=== PATIENT | female | born 1980 | race African-American/Black ===

== ENCOUNTER 2017-04-26 23:24 | Inpatient (IN) | payer OTHER ==
[2017-04-26] MEDS ORDERED: SODIUM CHLORIDE 0.9% 1000ML 1,000 ML IVS ONE (23:50)
[2017-04-26] MEDS ORDERED: ONDANSETRON INJ 4 MG/2 ML VIAL IV ONE (23:50)
--- NOTE | 2017-04-26 23:53 | ED.PDOC ---
History of Present Illness - General Chief Complaint: Abdominal Pain Stated Complaint: generalized weakness, N/V/D, LLQ pain c cramps Time Seen by Provider: 04/26/17 23:38 Information Source: patient, RN notes reviewed, Vital Signs reviewed Exam Limitations: no limitations - History of Present Illness Initial Comments: Patient comes in with c/o generalized weakness, N/V/D and LLQ abd pain that started this morning. She works at [employer] and has been around a lot of ill individuals. She also has a history of frequent anemia due to gastric bypass 10 years ago. Her last transfusion was ~3 weeks ago. Her last Hgb was 11.5. Abdominal Pain Onset Location: LLQ Pain Radiation: no radiation Quality: mild, cramping, dull Timing/Duration: 24 hours Improving Factors: nothing Worsening Factors: nothing Associated Symptoms: diarrhea, fatigue, nausea/vomiting Review of Systems - Review of Systems Constitutional: States: malaise, weakness. Denies: chills, fever EENTM: States: no symptoms reported Respiratory: States: no symptoms reported Cardiology: States: no symptoms reported Gastrointestinal/Abdominal: States: see HPI, abdominal pain, diarrhea, nausea, vomiting Musculoskeletal: States: no symptoms reported Skin: States: no symptoms reported Neurological: States: no symptoms reported Hematologic/Lymphatic: States: anemia All other Systems: No Change from Baseline Past Medical History (General) - Patient Medical History Hx Seizures: No Hx Stroke: No Hx Dementia: No Hx Asthma: No Hx of COPD: No Hx Cardiac Disorders: No Hx Congestive Heart Failure: No Hx Pacemaker: No Hx Hypertension: No Hx Thyroid Disease: No Hx Diabetes: No Hx Gastroesophageal Reflux: No Hx Renal Disease: No Hx Cancer: No Hx of HIV: No Hx Hepatitis C: No Hx MRSA: No Surgical History: cholecystectomy, gastric bypass, Hysterectomy, other - Vaccination History Hx Tetanus, Diphtheria Vaccination: No Hx Influenza Vaccination: No Hx Pneumococcal Vaccination: No Immunizations Up to Date: No - Social History Hx Tobacco Use: No Hx Chewing Tobacco Use: No Hx Alcohol Use: Yes - social Hx Substance Use: No Hx Substance Use Treatment: No Hx Depression: No Feels Threatened In Home Enviroment: No Feels Threatened In a Relationship: No Hx Physical Abuse: No Hx Emotional Abuse: No Hx Suspected Abuse: No Family Medical History - Family History Father Cause of : heart attack Hx Family Hypertension: Yes Hx Cardiac Disease: Yes Physical Exam - Physical Exam General Appearance: Alert, No apparent distress, Ill Appearing, Well Developed, Well Groomed, Well Hydrated, Well Nourished Neck: non-tender, full range of motion, supple, normal inspection Respiratory: lungs clear, normal breath sounds, no respiratory distress, no accessory muscle use Cardiovascular/Chest: regular rate, rhythm, no gallop, no murmur Gastrointestinal/Abdominal: normal bowel sounds, non tender, soft, no organomegaly, no pulsatile mass Neurologic: alert, normal mood/affect, oriented x 3 Skin Exam: normal color, warm/dry Comments: Vital Signs 04/26/17 23:30 Temperature 97.2 F L Pulse Rate [ 115 H monitor] Respiratory 16 Rate Blood Pressure 141/76 [Left Arm] O2 Sat by Pulse 100 Oximetry Progress - Progress Progress: 04/27/17 01:21 Labs show Hgb of 7.9 which is a 3.5 point drop from her last check. Concern is that when she gets rehydrated from her dehydration that it will go lower. Discussed with Hospitalist. Will admit for blood transfusion and further management of her gastroenteritis. - Results/Orders Results/Orders: Laboratory Tests 04/26/17 04/26/17 12:25 12:25 WBC 6.0 RBC 2.63 L Hgb 7.9 L* Hct 23.7 L MCV 90.1 MCH 30.0 MCHC 33.2 RDW 15.0 H Plt Count 193 MPV 8.3 Absolute Neuts (auto) 4.50 Absolute Lymphs (auto) 0.90 L Absolute Monos (auto) 0.50 Absolute Eos (auto) 0.00 Absolute Basos (auto) 0.00 Neutrophils % 75.4 Lymphocytes % 15.0 L Monocytes % 8.8 Eosinophils % 0.4 L Basophils % 0.4 Sodium 135 Potassium 4.1 Chloride 101 Carbon Dioxide 26 Anion Gap 12.1 BUN 24 H Creatinine 0.73 BUN/Creatinine Ratio 32.9 H Random Glucose 118 H Serum Osmolality 275.2 Calcium 8.8 Total Bilirubin 0.5 AST 25 ALT 25 Alkaline Phosphatase 39 L Serum Total Protein 6.3 L Albumin 4.1 Globulin 2.2 L Albumin/Globulin Ratio 1.9 Departure - Departure Clinical Impression: Gastroenteritis, Anemia due to blood loss, chronic Time of Disposition: 01:24 Disposition: Discharge to Home or Self Care Condition: Fair Departure Forms: ED Discharge - Pt. Copy, Patient Portal Self Enrollment Instructions: DI for Abdominal Pain-Adult Home Medications: Ambulatory Orders Bariatric Advantage 1 ea PO DAILY 04/26/17 Cyanocobalamin [B12] 1,000 mcg PO DAILY 04/26/17 Gabapentin [Neurontin] 300 mg PO TID PRN 04/26/17 Hydrocodone-Acetaminophen [Hydrocodone Bitartrate/AC] 20 ml PO Q6HR PRN Multiple Vitamins W/ Minerals [Multivitamin Adult] 1 chw PO DAILY 04/26/17 Decision To Admit - Decistion To Admit Decision to Admit Reason: Admit from ER Decision to Admit Date: 04/27/17 Decision to Admit Time: 01:23
--- NOTE | 2017-04-27 01:40 | HP ---
SUPERVISING PHYSICIAN: Kemal Atkins M.D. CHIEF COMPLAINT: Abdominal pain. HISTORY OF PRESENT ILLNESS: Ms. Benites is a 37 year-old female that presented to the Emergency Department complaining of generalized weakness, nausea, vomiting, diarrhea and some left lower quadrant abdominal pain that she describes as cramping. It started the morning of admission. 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 She does have a significant history of having gastric bypass 10 years previously and chronic anemia with B12 deficiency and has required multiple transfusions in the past with her last transfusion being within the last 3 weeks. She notes that her last hemoglobin was 11.5. Laboratory studies in the Emergency Department showed that she was significantly anemic with hemoglobin 7.9, hematocrit 23.7 with platelet count 193,000. Differential is within normal limits as well as white count was normal. Chemistries showed a slightly elevated BUN of 24 with normal electrolytes and normal liver function. Urinalysis also was within normal limits. She was given saline in the Emergency Department and given that she has significant anemia, and was significantly dehydrated, Dr. Li, E. R. physician, requested the patient be transitioned to Observation at least to further manage her fluid status and in anticipation of transfusion of 2 units of packed red blood cells with concerns that she may be much more anemic once she receives adequate fluid resuscitation. The patient was admitted in stable condition to the Medical/ Surgical floor. PAST MEDICAL HISTORY: 1. Chronic anemia secondary to previous gastric bypass. 2. Chronic B12 deficiency. 3. Rheumatoid arthritis. 4. History of peptic ulcer disease. 5. Chronic pain syndrome. 6. Elevated cholesterol. PAST SURGICAL HISTORY: 1. Laparoscopic surgery for endometriosis times 2. 2. Two sections. 3. Breast reduction. 4. Gastric bypass 10 years previously. 5. Cholecystectomy. 6. Partial hysterectomy. HOME MEDICATIONS: 1. Multiple vitamins with minerals once daily. 2. Liquid hydrocodone with Acetaminophen 20 mL as needed every 6 hours for pain. 3. B12 1,000 mcg daily. 4. Gabapentin 300 mg 3 times daily. 5. Bariatric Advantage 1 daily. ALLERGIES: ALBUTEROL, MORPHINE AND NSAIDs. FAMILY HISTORY: Father is from complications from pancreatic cancer as well as diabetes and cardiovascular disease. Mother is currently alive but has problems with hypertension. 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 Currently works in [employer] but lives in [place], [place]. She is . She has never smoked. She only drinks wine on occasions rarely. Denies any illicit drug use. MEDICAL PROVIDERS: Vending Technician, Dr. Vega Primary care physician, Dr. Chuck Jung Pain management, [facility], [place], [place] REVIEW OF SYSTEMS: CONSTITUTIONAL: Positive for weakness and general malaise but denies any chills or fever. HEENT: Denies any symptoms. CARDIOVASCULAR: Denies any chest pains, palpitations, syncopal episodes. RESPIRATORY: Denies any shortness of breath. GASTROINTESTINAL: As noted in the History of Present Illness, abdominal pain with some nausea, vomiting and diarrhea. NEUROLOGIC: Denies any syncopal episodes, headaches, dizziness or other neurological symptoms. PHYSICAL EXAMINATION: VITAL SIGNS: On admission, initially showed temperature 97.2 with heart rate 115, blood pressure 141/76, respirations 16, satting 100% on room air. On admission to the Medical/Surgical floor, temperature 97.5, pulse 97, blood pressure 114/77, respirations 16, satting 99% on room air with weight 73.0 kg. GENERAL: The patient is alert. Appears to be in no distress. Does appear ill- appearing but is well-nourished and well-hydrated. HEENT: Tympanic membranes are clear bilaterally. Oropharynx is pink. Mucosal membranes were dry with no lesions noted. NECK: Supple with full range of motion, non-tender with no jugular venous distention noted. CHEST: Clear to auscultation bilaterally without any rhonchi, wheezing or rales. CARDIOVASCULAR: Regular rate and rhythm without appreciable murmurs, gallops, or rubs. ABDOMEN: Soft. Some tenderness noted on deep palpation to the left lower quadrant. Bowel sounds are present and normal. NEUROLOGIC: She is alert and oriented times three with no neurologic or sensory motor deficits noted. LABORATORY: CBC showed white count 6, hemoglobin 7.9, hematocrit 23.7, platelet count 193,000. Differential showed to be with elevated lymphocytes. Chemistries showed normal electrolytes with potassium 4.1 with BUN 24, creatinine 0.73. Liver functions showed to be within normal limits. Glucose 118. Albumin 4.1. Urinalysis showed just a trace of blood on dipstick, otherwise within normal limits. MICROBIOLOGY: Stool culture: Clostridium Difficile colitis pending, leukoferrin pending and occult bloods pending on stool. Blood bank cross match for 4 units of packed red blood cells is pending at time of admission. RADIOLOGY: She had an abdominal pelvic CT on admission to the Medical/Surgical floor and per radiology interpretation there was note of postsurgical changes from gastric bypass with prominent vessels in the mesentery in the right mid upper quadrant of the abdomen seen which could represent collateral circulation from unknown etiology, possibly related to previous surgery. There was also mention of well circumscribed 2.2 x 1.8 cm cyst in the right cecum possibly representing a mesenteric cyst. The appendix was not identified and there was no CT evidence of bowel obstruction or inflammatory changes. Please see that report for full details. ASSESSMENT: 1. Acute on chronic anemia requiring transfusion of packed red blood cells in a patient with a past history of gastric bypass and having required multiple transfusions in the past with the most recent being within the last 3 weeks. 2. Gastroenteritis likely viral with the patient having an elevated lymphocyte count but having been in a healthcare facility exposed to previously ill patients with similar symptoms with some mild abdominal pain, nausea, vomiting and diarrhea. 3. Nausea, vomiting and diarrhea secondary to number 2 with the patient noting that she has some chronic diarrhea secondary to her previous gastric bypass. 4. Rheumatoid arthritis. 5. History of previous peptic ulcer disease. 6. B12 deficiency. 7. Chronic pain syndrome followed by a pain clinic in [place], [place]. 8. History of being negative for sickle cell trait per the patient's review of medical records provided by the patient. 9. Moderate dehydration secondary to ongoing nausea and vomiting likely from acute gastroenteritis likely viral versus remote possibility of being bacterial in origin with stool studies pending. PLAN: The patient will be admitted to the Medical/Surgical floor for transfusion of initially 2 units of packed red blood cells and fluid management with IV fluids to assist in rehydration given the nausea, vomiting and diarrhea. Will start the patient on Levaquin and Flagyl given her symptomology of the nausea, vomiting, diarrhea and some left lower quadrant pain, and possible exposure to healthcare-related gastroenteritis awaiting stool studies. She will be made NPO initially and then advance diet as she shows clinical improvement. Will anticipate hopefully discharging tomorrow once her H&H has shown to be stable and improved, and she is able to tolerate her oral intake. She does have arrangements to see a personal insurance advisor which she is not sure of the doctor' name, but she has also got an appointment to see a senior mechanical project engineer as noted above once discharged as she is due a colonoscopy in the near future. Will anticipate length of stay to be 2 to 3 days. Until discharge, will continue to monitor the patient closely and treat appropriately. Will plan to reevaluate in the morning with repeat CBC and again a BMP. #[id number] [facility] CENTERMurtaza
[2017-04-27] MEDS ORDERED: SODIUM CHLORIDE 0.9% 1000ML 1,000 ML IVS ONE (02:30)
[2017-04-27] MEDS ORDERED: SODIUM CHLORIDE 0.9% 1000ML 1,000 ML ONE (02:36)
[2017-04-27] MEDS ORDERED: ONDANSETRON INJ 4 MG/2 ML VIAL ONE (03:46)
[2017-04-27] MEDS ORDERED: levoFLOXacin 500MG IV 100 ML IVPB ONE (03:46)
[2017-04-27] MEDS: levoFLOXacin 500MG IV 500 MG in PREMIX BAG 1 BAG IVPB SCH (03:49)
[2017-04-27] MEDS: ONDANSETRON INJ 4 MG/2 ML VIAL IV PRN ×3 (03:59→13:59)
[2017-04-27] MEDS ORDERED: metroNIDAZOLE IV PREMIX 500MG 500 MG in PREMIX BAG 1 BAG IVPB SCH (04:00)
[2017-04-27] MEDS: HYDROmorphone HCL INJ 2 MG/ML VIAL IV PRN ×5 (04:37→23:53)
[2017-04-27] MEDS ORDERED: metroNIDAZOLE IV PREMIX 500MG 100 ML IVPB ONE ×3 (05:09→20:22)
[2017-04-27] MEDS: metroNIDAZOLE IV PREMIX 500MG 500 MG in PREMIX BAG 1 BAG IVPB SCH ×3 (05:14→21:09)
[2017-04-27] MEDS: KCL 20MEQ/0.45% NS 1,000 ML IVS PRN (06:28)
[2017-04-27] MEDS ORDERED: IV SET AND CAP CHANGE INJ INJ SCH (07:30)
[2017-04-27] MEDS ORDERED: ACETAMINOPHEN 325 MG TAB PO PRN (07:30)
--- NOTE | 2017-04-27 07:58 | CT ---
EXAM DESCRIPTION: Abdomen/Pelvis w/Contrast CLINICAL HISTORY: Gastroenteritis COMPARISON: None. TECHNIQUE: Noncontrast transaxial CT images of the abdomen and pelvis are obtained. This exam was performed according to our departmental dose-optimization program, which includes automated exposure control, adjustment of the mA and/or kV according to patient size and/or use of iterative reconstruction technique . FINDINGS: Visualized lung bases are unremarkable. Given the limitations of a noncontrast exam the liver, spleen, pancreas, and adrenal glands are unremarkable. Surgical clips from cholecystectomy are seen. Abdominal vasculature is unremarkable. No significant nephrolithiasis. No ureteral obstruction. Urinary bladder is contracted and not well evaluated. Uterus is not identified and could be surgically absent. There is a 2.7 cm fluid attenuation follicle of the right ovary. The left ovary is unremarkable. The appendix is not identified. There is a 2.2 x 1.8 cm fluid attenuation cyst to the right of the cecum. There are postsurgical changes identified from gastric bypass surgery. No bowel obstruction is seen. Colon is unremarkable. No significant diverticular disease is identified. There are enlarged prominent vessels in the mesentery of the right mid to upper quadrant of the abdomen. Mild swirling of the vessels in the mesenteric root are seen possibly related to previous surgery. There are nonspecific mostly less than 1 cm lymph nodes in the mesenteric fat of the mid abdomen. No significant retroperitoneal lymphadenopathy seen. Osseous structures show no aggressive bony lesions. IMPRESSION: Postsurgical changes from gastric bypass identified. Prominent vessels in the mesentery of the right mid to upper quadrant of the abdomen are seen. This could represent collateral circulation from unknown etiology possibly related to previous surgery. Well-circumscribed 2.2 x 1.8 cm cyst to the right of the cecum. This could represent mesenteric cyst. The appendix is not definitely identified. Correlate with patient's surgical history. Consider further evaluation with CT of the abdomen and pelvis with IV and oral contrast for better evaluation. No CT evidence of bowel obstruction or inflammatory changes. Other findings as described in body of the report. Electronically signed by: Tal Lau MD 04/27/2017 7:56 AM CDT
[2017-04-27] MEDS ORDERED: ACETAMINOPHEN 325 MG TAB PO ONE (13:22)
[2017-04-27] MEDS ORDERED: diphenhydrAMINE HCL 50 MG/ML VIAL IV ONE ×2 (13:22→16:25)
[2017-04-27] MEDS ORDERED: methylPREDNISolone SODIUM SUC 40 MG/ML VIAL IV ONE (13:22)
[2017-04-27] MEDS ORDERED: SODIUM CHLORIDE 0.9% 500ML 500 ML IVS SCH (13:30)
[2017-04-27] MEDS ORDERED: GABAPENTIN 300 MG CAP PO PRN (16:46)
[2017-04-27] MEDS: diphenhydrAMINE HCL 50 MG/ML VIAL IV PRN ×2 (20:08→23:53)
[2017-04-27] MEDS: SODIUM CHLORIDE 0.9% (FLUSH) 10 ML SYG IV PRN ×2 (20:08→23:52)
[2017-04-28] MEDS ORDERED: methylPREDNISolone SODIUM SUC 40 MG/ML VIAL IV ONE (01:27)
[2017-04-28] MEDS: SODIUM CHLORIDE 0.9% (FLUSH) 10 ML SYG IV PRN ×3 (01:31→04:57)
[2017-04-28] MEDS ORDERED: levoFLOXacin 500MG IV 100 ML IVPB ONE (03:01)
[2017-04-28] MEDS ORDERED: metroNIDAZOLE IV PREMIX 500MG 100 ML IVPB ONE (03:02)
[2017-04-28] MEDS: KCL 20MEQ/0.45% NS 1,000 ML IVS PRN (03:45)
[2017-04-28] MEDS: levoFLOXacin 500MG IV 500 MG in PREMIX BAG 1 BAG IVPB SCH (03:45)
[2017-04-28] MEDS: diphenhydrAMINE HCL 50 MG/ML VIAL IV PRN (03:56)
[2017-04-28 04:16] VITALS: O2SAT 100
[2017-04-28] MEDS: HYDROmorphone HCL INJ 2 MG/ML VIAL IV PRN (04:57)
[2017-04-28] MEDS: metroNIDAZOLE IV PREMIX 500MG 500 MG in PREMIX BAG 1 BAG IVPB SCH (05:13)
[2017-04-28] MEDS ORDERED: CYANOCOBALAMIN 1,000 MCG TAB ONE (07:56)
[2017-04-28] MEDS ORDERED: MAGNESIUM HYDROXIDE 30 ML UD ONE (07:56)
[2017-04-28] MEDS ORDERED: diphenhydrAMINE HCL 50 MG/ML VIAL IV PRN (08:00)
[2017-04-28] MEDS ORDERED: MAGNESIUM HYDROXIDE 30 ML UD PO ONE (08:07)
[2017-04-28] MEDS ORDERED: BARIATRIC ADVANTAGE PO SCH (09:00)
[2017-04-28] MEDS ORDERED: CYANOCOBALAMIN 1,000 MCG TAB PO SCH (09:00)
[2017-04-28] MEDS ORDERED: PANTOPRAZOLE SOD SUSP 40 MG PCKT PO ONE (09:03)
[2017-04-28] MEDS ORDERED: SUCRALFATE 1 GM/10 ML 1 GM UD PO SCH (09:05)
[2017-04-28] MEDS ORDERED: HYDROcodone/APAP 5MG/217MG LIQ 10 ML UD PO PRN (09:13)
[2017-04-28] MEDS ORDERED: FLUCONAZOLE 150 MG TAB PO ONE (10:54)
[2017-04-28] MEDS ORDERED: FLUCONAZOLE 150 MG TAB ONE (10:57)
[2017-04-28 11:13] VITALS: BP 118/82; TEMP 97.1
--- NOTE | 2017-05-03 18:22 | DS ---
SUPERVISING PHYSICIAN: Kemal Atkins M.D. DISCHARGE DIAGNOSIS: 1. Acute on chronic anemia requiring transfusion of 2 units of packed red blood cells in a patient with a history of past gastric bypass and having required multiple transfusions in the past with the most recent being within the last 3 weeks showing to be stable at discharge. 2. Gastroenteritis likely viral with the patient having an elevated lymphocytic count having been in a healthcare facility exposed to previously ill patients with similar symptoms with some mild abdominal pain, nausea, vomiting and diarrhea showing improvement prior to discharge. 3. Nausea, vomiting and diarrhea secondary to number 2 with the patient noting that she has some chronic diarrhea secondary to her previous gastric bypass. 4. Rheumatoid arthritis. 5. History of previous peptic ulcer disease. 6. B12 deficiency. 7. Chronic pain syndrome followed by a pain clinic in [place], [place]. 8. History of being negative for sickle cell trait per the patient's review of medical records provided by the patient. 9. Moderate dehydration secondary to ongoing nausea and vomiting likely from acute gastroenteritis likely viral versus remote possibility of being bacterial in origin with stool studies not collected as the patient had no other episodes of diarrhea while hospitalized. HISTORY OF PRESENT ILLNESS: Ms. Benites is a 37 year-old female that presented to the Emergency Department complaining of generalized weakness, nausea, vomiting, diarrhea and some left lower quadrant abdominal pain that she describes as cramping. It started the morning of admission. 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 She does have a significant history of having gastric bypass 10 years previously and chronic anemia with B12 deficiency as well as requiring multiple transfusions in the past with her last transfusion being within the last 3 weeks prior to this admission. She notes that her last hemoglobin was 11.5. Today laboratory studies in the Emergency Department showed that she was significantly anemic with hemoglobin 7.9, hematocrit 23.7 with platelet count 193,000. Differential is within normal limits as well as white count. Chemistries showed a slightly elevated BUN of 24 with normal electrolytes and normal liver function. Urinalysis also was within normal limits. She was given saline in the Emergency Department and given that she has significant anemia, and was significantly dehydrated, Dr. Li, E. R. physician, requested the patient be transitioned to Observation at least for further management of her fluid status and in anticipation of transfusion of 2 units of packed red blood cells with concerns that she may be much more anemic once she receives adequate fluid resuscitation. The patient was admitted in stable condition to the Medical/Surgical floor. LABORATORY STUDIES: Admission white count was 6, at discharge was 10.3. Initial hemoglobin and hematocrit was 7.9 and 23.7, after transfusion of 2 units of packed red blood cells at discharge her hemoglobin 10.4, hematocrit 30.9, platelet count 180,000. Differential did show a left shift prior to discharge. Chemistries showed normal electrolytes. Initially her BUN was slightly elevated at 24 with creatinine 0.73, at discharge BUN was 7, creatinine 0.56, glucose 141 at discharge. Liver functions all showed to be within normal limits. Urinalysis on admission showed just a trace lysed blood on dipstick, otherwise everything else was within normal limits. Abdomen and pelvic CT ordered with contrast, however the patient was unable to have adequate IV access with contrast limiting the exam, and she only got a small bolus of contrast per radiology. Per radiology interpretation was noted prominent vessels in the mesentery in the right upper quadrant of the abdomen is seen which could represent collateral circulation from a related surgery. Well circumcised 2.2 x 1.8 cyst to the right of the cecum which could represent a mesenteric cyst. The appendix was not definitely identified. There is no CT evidence of bowel obstruction or inflammatory changes. Please refer to that final report for full details. HOSPITAL COURSE: Ms. Benites was admitted from the Emergency Department as noted in the History of Present Illness for severe anemia and dehydration. She was given IV fluids and transfused 2 units of packed red blood cells which she tolerated without any complications. She was given Solu-Medrol. She supposedly had a history of past transfusion reaction. There were no identified antibodies in her initial workup. She did have a slight rash that resolved shortly after transfusion began. She remained stable and showed improved H&H prior to discharge. In regards to the abdominal pain, she continued to have a little nausea initially on admission but was able to advance her diet to a regular diet with no recurrence of nausea. She had no recurrence of diarrhea and was noted that her abdominal pain had improved. It was noted that she was requiring initially Dilaudid for pain control on admission. The patient was started on Levaquin and Flagyl with concerns for possible bacterial gastroenteritis but showed good clinical resolution and it was felt that it was most likely viral. She would benefit from a course of additional treatment with both Levaquin and Flagyl on discharge. PLAN: Ms. Benites was discharged on 04/28/17. She was instructed to have close clinical followup with her cage shift manager and primary care physician. She was told to call both places she is to have a followup appointment with Dr. Russ in [place]. She will need a colonoscopy in the near future to further investigate a possible gastrointestinal loss. She was told to resume her home medications and start new medications as directed. She was told to return to the hospital or call 911 should she have any return of her symptoms. DISCHARGE MEDICATIONS: 1. Diflucan 150 mg once. 2. Levaquin 500 mg, #3. 3. Metronidazole 500 mg 3 times a day, #9. 4. Carafate 1 gram oral 4 times daily, 500 mL, 1 gram per 10 mL. Diet at discharge was usual diet as tolerated. Activity was increase as tolerated. Condition at discharge was stable and improved. [facility][id number] [facility]
== END 2017-04-28 11:26 | disposition home or self-care (01) | DRG 812 ==
LOC: ER 23:24 → OBSVTOIN 04-27 01:39 → MS 04-27 01:39
PROVIDERS: ADMIT Nurse Practitioner Family; ATTEND Nurse Practitioner Family
PROC: 30233N1 Transfusion of Nonautologous Red Blood Cells into Peripheral Vein, Percutaneous Approach (ICD-10-PCS; principal; 2017-04-27)
PROC: BW21YZZ Computerized Tomography (CT Scan) of Abdomen and Pelvis using Other Contrast (ICD-10-PCS; 2017-04-27)
DX: D64.9 Anemia, unspecified (principal); A04.9 Bacterial intestinal infection, unspecified; A08.4 Viral intestinal infection, unspecified; E86.0 Dehydration; M06.9 Rheumatoid arthritis, unspecified; E53.8 Deficiency of other specified B group vitamins; E78.00 Pure hypercholesterolemia, unspecified; G89.4 Chronic pain syndrome; Z87.11 Personal history of peptic ulcer disease; Z98.84 Bariatric surgery status; Z79.891 Long term (current) use of opiate analgesic; Z79.899 Other long term (current) drug therapy; Z88.5 Allergy status to narcotic agent; Z88.6 Allergy status to analgesic agent; Z88.8 Allergy status to other drugs, medicaments and biological substances

== ENCOUNTER 2017-06-13 08:25 | Emergency (ER) | payer OTHER ==
--- NOTE | 2017-06-13 08:52 | ED.PDOC ---
History of Present Illness - General Chief Complaint: General Stated Complaint: SOB with exertion Time Seen by Provider: 06/13/17 08:43 Source: patient, RN notes reviewed, Vital Signs reviewed Exam Limitations: no limitations - History of Present Illness Initial Comments: Patient with history of chronic anemia comes in with her usual anemia symptoms. She is having a lot of fatigue. Worse when she is up moving around. Having to stop frequently and rest. She last had her hemoglobin checked ~4 weeks ago and it was 10.7 at that time. Timing/Duration: 24 hours, getting worse Severity: moderate Improving Factors: rest Worsening Factors: movement Associated Symptoms: shortness of breath - with activity Allergies/Adverse Reactions: Allergies Albuterol Allergy (Verified 04/26/17 23:47) Morphine Allergy (Verified 04/26/17 23:47) NSAIDs Allergy (Verified 04/26/17 23:47) IV Iron Allergy (Uncoded 06/13/17 08:42) Home Medications: Ambulatory Orders Bariatric Advantage 1 ea PO DAILY 04/26/17 Cyanocobalamin [B12] 1,000 mcg PO DAILY 04/26/17 Hydrocodone-Acetaminophen [Hydrocodone Bitartrate/AC 7.5-325 mg/15Ml] 20 ml PO Q6HR PRN 04/26/17 Multiple Vitamins W/ Minerals [Multivitamin Adult] 1 chw PO DAILY 04/26/17 Sucralfate Suspension [Carafate Suspension] 1 gm PO QID #500 ml 04/28/17 Review of Systems - Review of Systems Constitutional: States: malaise. Denies: chills, fever EENTM: States: no symptoms reported Respiratory: States: short of breath. Denies: cough, stridor, wheezing Cardiology: States: no symptoms reported. Denies: chest pain, palpitations, syncope Gastrointestinal/Abdominal: States: no symptoms reported. Denies: nausea, vomiting Musculoskeletal: States: no symptoms reported Skin: States: no symptoms reported Neurological: States: no symptoms reported Hematologic/Lymphatic: States: anemia All other Systems: No Change from Baseline Past Medical History (General) - Patient Medical History Hx Seizures: No Hx Stroke: No Hx Dementia: No Hx Asthma: No Hx of COPD: No Hx Cardiac Disorders: No Hx Congestive Heart Failure: No Hx Pacemaker: No Hx Hypertension: No Hx Thyroid Disease: No Hx Diabetes: No Hx Gastroesophageal Reflux: No Hx Renal Disease: No Hx Cancer: No Hx of HIV: No Hx Hepatitis C: No Hx MRSA: No Surgical History: cholecystectomy, Hysterectomy - Vaccination History Hx Tetanus, Diphtheria Vaccination: No Hx Influenza Vaccination: No Hx Pneumococcal Vaccination: No - Social History Hx Tobacco Use: No Hx Chewing Tobacco Use: No Hx Alcohol Use: No Hx Substance Use: No Hx Substance Use Treatment: No Hx Depression: No Hx Physical Abuse: No Hx Emotional Abuse: No Hx Suspected Abuse: No Family Medical History - Family History Father Living Status: Cause of : heart attack Hx Family Asthma: No Hx Family Congestive Heart Failure: Yes Hx Family Hypertension: Yes Hx Family Stroke: No Hx Cardiac Disease: Yes Hx Family Diabetes: Yes Hx Family Cancer: Yes Physical Exam - Physical Exam General Appearance: Alert, Comfortable, No apparent distress, Well Developed, Well Groomed, Well Hydrated, Well Nourished Neck: supple, normal inspection Respiratory: lungs clear, normal breath sounds, no respiratory distress, no accessory muscle use Cardiovascular/Chest: regular rate, rhythm, no edema, no gallop, no JVD, no murmur Gastrointestinal/Abdominal: normal bowel sounds, non tender, soft Extremity: normal range of motion, normal inspection Neurologic: alert, normal mood/affect, oriented x 3 Skin Exam: normal color, warm/dry Comments: Vital Signs 06/13/17 08:34 Temperature 97.8 F Pulse Rate [ 106 H Left Brachial] Respiratory 20 Rate Blood Pressure 123/79 [Left Arm] O2 Sat by Pulse 100 Oximetry Progress - Progress Progress: 06/13/17 09:11 Hg 7.6. Will give PRBC transfusion. Patient is in agreement. 06/13/17 09:45 Patient reports history of a transfusion reaction. Will pre-treat with Benadryl 25mg IV and Solu-Medrol 125mg IV. 06/13/17 10:13 Patients blood shows a possible antibody so will need to be sent to [facility] [place] in [place] for testing and cross-match. Discussed with patient, Jl Stoddard (Hospitalist), and lab. Will d/c patient and have her return tomorrow AM for outpatient/ambulatory transfusion of 2U of PRBC. Patient advised to not remove red blood bank band. Departure - Departure Clinical Impression: Anemia due to blood loss, chronic Time of Disposition: 10:15 Disposition: Discharge to Home or Self Care Condition: Fair Departure Forms: ED Discharge - Pt. Copy, Patient Portal Self Enrollment Instructions: DI for Iron Deficiency Anemia-Adult Diet: resume usual diet Activity: increase activity as tolerated Home Medications: Ambulatory Orders Bariatric Advantage 1 ea PO DAILY 04/26/17 Cyanocobalamin [B12] 1,000 mcg PO DAILY 04/26/17 Hydrocodone-Acetaminophen [Hydrocodone Bitartrate/AC 7.5-325 mg/15Ml] 20 ml PO Q6HR PRN 04/26/17 Multiple Vitamins W/ Minerals [Multivitamin Adult] 1 chw PO DAILY 04/26/17 Sucralfate Suspension [Carafate Suspension] 1 gm PO QID #500 ml 04/28/17 Additional Instructions: Return to hospital tomorrow for outpatient transfusion DO NOT REMOVE red blood bank band.
[2017-06-13] MEDS ORDERED: methylPREDNISolone SODIUM SUC 125 MG/2 ML VIAL IV ONE (09:45)
[2017-06-13] MEDS ORDERED: diphenhydrAMINE HCL 50 MG/ML VIAL IV ONE (09:45)
[2017-06-14] MEDS ORDERED: SODIUM CHLORIDE 0.9% 500ML 500 ML IVS ONE (08:43)
[2017-06-14] MEDS ORDERED: SODIUM CHLORIDE 0.9% 500ML 500 ML IVS SCH (09:00)
[2017-06-14] MEDS ORDERED: diphenhydrAMINE HCL 50 MG/ML VIAL ONE ×3 (09:10→15:30)
[2017-06-14] MEDS ORDERED: methylPREDNISolone SODIUM SUC 40 MG/ML VIAL ONE ×3 (09:10→15:30)
[2017-06-14] MEDS: diphenhydrAMINE HCL 50 MG/ML VIAL IV ONE ×3 (09:10→15:25)
[2017-06-14] MEDS: methylPREDNISolone SODIUM SUC 40 MG/ML VIAL IV ONE ×3 (09:11→15:30)
[2017-06-14] MEDS: ACETAMINOPHEN 325 MG TAB PO ONE ×2 (12:03→16:15)
[2017-06-14 15:13] VITALS: O2SAT 100
[2017-06-14] MEDS ORDERED: ACETAMINOPHEN 325 MG TAB PO ONE (16:15)
[2017-06-14 18:20] VITALS: BP 120/76; TEMP 98.6
[2017-06-16] MEDS ORDERED: ACETAMINOPHEN 325 MG TAB PO ONE (12:03)
== END 2017-06-13 10:41 | disposition home or self-care (01) ==
LOC: ER 08:25
DX: D50.0 Iron deficiency anemia secondary to blood loss (chronic) (principal); Z88.8 Allergy status to other drugs, medicaments and biological substances; Z88.6 Allergy status to analgesic agent; Z79.899 Other long term (current) drug therapy

== ENCOUNTER 2017-06-15 11:36 | Emergency (ER) | payer OTHER ==
[2017-06-15] MEDS ORDERED: SODIUM CHLORIDE 0.9% 1000ML 1,000 ML IVS ONE ×2 (11:54→17:16)
--- NOTE | 2017-06-15 11:54 | ED.PDOC ---
History of Present Illness - General Chief Complaint: Back Pain or Injury Stated Complaint: R low back discomfort Time Seen by Provider: 06/15/17 11:52 Source: patient Exam Limitations: no limitations - History of Present Illness Initial Comments: Liban Benites 37 y/o female stated that she had constant dull right flank radiating to right abdomen which started about 8 hours ago.Had 2 units of blood transfused yesterday for her chronic anemia after she underwent gastric bypass for weight loss in 2006.She had been seen by a associate store leader in the past Denies kidney stones ,Diarrhea,nausea/vomiting no dysuria/hematuria. Had also multiple ct scans abd/pelvis in the past and endoscopy/colonoscopy;had multiple blood transfusions for her chronic anemia. Timing/Duration: 4-6 hours, constant Severity: moderate Improving Factors: nothing Worsening Factors: nothing Associated Symptoms: denies symptoms Allergies/Adverse Reactions: Allergies Albuterol Allergy (Verified 06/15/17 11:53) Morphine Allergy (Verified 06/15/17 11:53) NSAIDs Allergy (Verified 06/15/17 11:53) IV Iron Allergy (Uncoded 06/15/17 11:53) Home Medications: Ambulatory Orders Bariatric Advantage 1 ea PO DAILY 04/26/17 Cyanocobalamin [B12] 1,000 mcg PO DAILY 04/26/17 Hydrocodone-Acetaminophen [Hydrocodone Bitartrate/AC 7.5-325 mg/15Ml] 20 ml PO Q6HR PRN 04/26/17 Multiple Vitamins W/ Minerals [Multivitamin Adult] 1 chw PO DAILY 04/26/17 Sucralfate Suspension [Carafate Suspension] 1 gm PO QID #500 ml 04/28/17 Methocarbamol [Robaxin] 750 mg PO BID #14 tab 06/15/17 Review of Systems - Review of Systems Constitutional: States: no symptoms reported EENTM: States: no symptoms reported Respiratory: States: no symptoms reported Cardiology: States: no symptoms reported Gastrointestinal/Abdominal: States: see HPI Genitourinary: States: no symptoms reported Musculoskeletal: States: no symptoms reported Skin: States: no symptoms reported Neurological: States: no symptoms reported Past Medical History (General) - Patient Medical History Hx Seizures: No Hx Stroke: No Hx Dementia: No Hx Asthma: No Hx of COPD: No Hx Cardiac Disorders: No Hx Congestive Heart Failure: No Hx Pacemaker: No Hx Hypertension: No Hx Thyroid Disease: No Hx Diabetes: No Hx Gastroesophageal Reflux: No Hx Renal Disease: No Hx Cancer: No Hx of HIV: No Hx Hepatitis C: No Hx MRSA: No Hx Other PMH: Yes - chronic anemia Surgical History: cholecystectomy, other - gastric bypass surgery-, hysterectomy - Vaccination History Hx Tetanus, Diphtheria Vaccination: No Hx Influenza Vaccination: No Hx Pneumococcal Vaccination: No - Social History Hx Tobacco Use: No Hx Chewing Tobacco Use: No Hx Alcohol Use: No Hx Substance Use: No Hx Substance Use Treatment: No Hx Depression: No Hx Physical Abuse: No Hx Emotional Abuse: No Hx Suspected Abuse: No - Activities of Daily Living Patient Lives Alone: No - family Family Medical History - Family History Father Living Status: Cause of : heart attack Hx Family Asthma: No Hx Family Congestive Heart Failure: Yes Hx Family Hypertension: Yes Hx Family Stroke: No Hx Cardiac Disease: Yes Hx Family Diabetes: Yes Hx Family Cancer: Yes - pancreatic Physical Exam - Physical Exam General Appearance: Alert, Anxious, No apparent distress Eye Exam: bilateral normal Ears, Nose, Throat: hearing grossly normal, normal ENT inspection Neck: full range of motion, supple Respiratory: chest non-tender, lungs clear Cardiovascular/Chest: normal peripheral pulses, regular rate, rhythm, no murmur Peripheral Pulses: radial,right: 1+, radial,left: 1+ Gastrointestinal/Abdominal: normal bowel sounds, non tender, soft, no organomegaly Back Exam: no CVA tenderness, no vertebral tenderness Neurologic: no motor/sensory deficits, alert, oriented x 3 Skin Exam: normal color, warm/dry Lymphatic: no adenopathy Progress - Progress Progress: 06/15/17 19:34 Vital Signs - 8 hr 06/15/17 06/15/17 06/15/17 11:51 13:05 14:00 Temperature 98.4 F 98.2 F Pulse Rate [ 103 H 88 94 H Left Radial] Respiratory 18 18 16 Rate Blood Pressure 138/77 123/71 124/73 [Left Arm] O2 Sat by Pulse 100 98 100 Oximetry 06/15/17 06/15/17 06/15/17 15:00 15:35 16:45 Temperature 98.6 F Pulse Rate [ 96 H 103 H 106 H Left Radial] Respiratory 16 18 18 Rate Blood Pressure 123/80 135/83 115/70 [Left Arm] O2 Sat by Pulse 100 100 99 Oximetry 06/15/17 18:16 Temperature 97.3 F L Pulse Rate [ 103 H Left Radial] Respiratory 16 Rate Blood Pressure 112/69 [Left Arm] O2 Sat by Pulse 99 Oximetry Laboratory Tests 06/15/17 06/15/17 06/15/17 12:01 12:10 12:10 WBC 14.1 H D RBC 3.39 L Hgb 9.2 L D Hct 28.9 L D MCV 85.1 MCH 27.1 MCHC 32.0 L RDW 17.5 H Plt Count 224 MPV 7.0 L Absolute Neuts (auto) 12.20 H Absolute Lymphs (auto) 0.70 L Absolute Monos (auto) 1.20 H Absolute Eos (auto) 0.00 Absolute Basos (auto) 0.00 Neutrophils % 86.1 H Lymphocytes % 4.8 L Monocytes % 8.7 Eosinophils % 0.1 L Basophils % 0.3 Sodium 137 Potassium 3.1 L Chloride 103 Carbon Dioxide 27 Anion Gap 10.1 L BUN 12 Creatinine < 0.40 L BUN/Creatinine Ratio 30.0 H Random Glucose 96 Serum Osmolality 273.4 L Calcium 9.2 Magnesium Total Bilirubin 0.7 AST 20 ALT 15 Alkaline Phosphatase 47 Serum Total Protein 6.9 Albumin 4.3 Globulin 2.6 Albumin/Globulin Ratio 1.7 Urine Color Yellow Urine Appearance Clear Urine pH 6.0 Ur Specific [place] 1.025 Urine Protein Trace Urine Glucose (UA) Negative Urine Ketones 15 H Urine Blood Negative Urine Nitrite Negative Urine Bilirubin Small H Urine Urobilinogen 0.2 Ur Leukocyte Esterase Negative Urine RBC 0 Urine WBC 1-3 Ur Epithelial Cells 10-20 Urine Bacteria 1+ 06/15/17 12:10 WBC RBC Hgb Hct MCV MCH MCHC RDW Plt Count MPV Absolute Neuts (auto) Absolute Lymphs (auto) Absolute Monos (auto) Absolute Eos (auto) Absolute Basos (auto) Neutrophils % Lymphocytes % Monocytes % Eosinophils % Basophils % Sodium Potassium Chloride Carbon Dioxide Anion Gap BUN Creatinine BUN/Creatinine Ratio Random Glucose Serum Osmolality Calcium Magnesium 1.8 Total Bilirubin AST ALT Alkaline Phosphatase Serum Total Protein Albumin Globulin Albumin/Globulin Ratio Urine Color Urine Appearance Urine pH Ur Specific [place] Urine Protein Urine Glucose (UA) Urine Ketones Urine Blood Urine Nitrite Urine Bilirubin Urine Urobilinogen Ur Leukocyte Esterase Urine RBC Urine WBC Ur Epithelial Cells Urine Bacteria Transfusion reaction investigation done by [employer] blood bank no acute transfusion reaction noted. - EKG/XRAY/CT XRAY: abdomen - no acute abnormalities Xray Comments: abdominal sono-no acute abnormalities Departure - Departure Clinical Impression: Right flank pain, Anemia, secondary, History of gastric bypass Time of Disposition: 19:59 Disposition: Discharge to Home or Self Care Condition: Fair Departure Forms: ED Discharge - Pt. Copy, Patient Portal Self Enrollment Instructions: DI for Iron Deficiency Anemia-Adult Prescriptions: Methocarbamol [Robaxin] 750 mg PO BID #14 tab Home Medications: Ambulatory Orders Bariatric Advantage 1 ea PO DAILY 04/26/17 Cyanocobalamin [B12] 1,000 mcg PO DAILY 04/26/17 Hydrocodone-Acetaminophen [Hydrocodone Bitartrate/AC 7.5-325 mg/15Ml] 20 ml PO Q6HR PRN 04/26/17 Multiple Vitamins W/ Minerals [Multivitamin Adult] 1 chw PO DAILY 04/26/17 Sucralfate Suspension [Carafate Suspension] 1 gm PO QID #500 ml 04/28/17 Methocarbamol [Robaxin] 750 mg PO BID #14 tab 06/15/17 Additional Instructions: RETURN TO EMERGENCY ROOM NEEDED;NEED TO FOLLOW UP WITH REST ROOM MAID and BARIATRIC SURGEON
[2017-06-15] MEDS ORDERED: fentaNYL CITRATE INJ 50 MCG/ML AMP IV ONE ×2 (12:01→18:56)
--- NOTE | 2017-06-15 12:42 | RAD ---
EXAM DESCRIPTION: Abdomen, 2 radiographs CLINICAL HISTORY: Abdominal pain FINDINGS/ IMPRESSION: Constipation. Large amount stool in the ascending colon and hepatic flexure. Nondistended air-filled transverse and ascending colon. Stool and nondistended air in the sigmoid colon and rectum Paucity of small bowel gas in the left mid-upper abdomen No evidence of pneumatosis or free intraperitoneal air. No organomegaly or obvious abdominal mass lesion. Previous cholecystectomy with surgical clips. No acute bony abnormality Electronically signed by: Fuentes Craft MD 06/15/2017 12:41 PM CDT
--- NOTE | 2017-06-15 12:44 | RAD ---
EXAM DESCRIPTION: Chest,1 View CLINICAL HISTORY: Chest pain FINDINGS/ IMPRESSION: Normal cardiomediastinal silhouette. The lungs are clear Streaky linear lucency over the lower neck likely external to the patient.. No other evidence of pneumomediastinum. No pneumothorax No acute bony abnormality Electronically signed by: Fuentes Craft MD 06/15/2017 12:42 PM CDT
--- NOTE | 2017-06-15 13:02 | US ---
EXAM DESCRIPTION: Abdomen,Complete CLINICAL HISTORY: pain COMPARISON: CT of the abdomen pelvis dated 27 April 2017 TECHNIQUE: Complete abdominal ultrasound FINDINGS: The liver is normal in appearance. There is no focal hepatic mass. The gallbladder has been removed. The common bile duct is normal in caliber measuring 4.3 mm. Portions of the pancreas seen appear normal. The spleen is normal in appearance. The kidneys are normal in size, shape, and echotexture. The IVC and the proximal aorta are unremarkable. IMPRESSION: 1. The patient is postcholecystectomy. Exam is otherwise unremarkable. Electronically signed by: Damion Villanueva MD 06/15/2017 1:01 PM CDT
[2017-06-15] MEDS: PROMETHAZINE HCL INJ 25 MG/ML VIAL IM ONE ×2 (13:36→13:48)
[2017-06-15] MEDS: ORPHENADRINE CITRATE 30 MG/ML AMP IV ONE ×2 (15:01→15:04)
[2017-06-15] MEDS ORDERED: PROMETHAZINE HCL INJ 25 MG/ML VIAL IM ONE (15:19)
[2017-06-15] MEDS ORDERED: fentaNYL CITRATE INJ 50 MCG/ML AMP ONE ×2 (15:23→20:09)
[2017-06-15 18:17] VITALS: TEMP 97.3; O2SAT 99
[2017-06-15] MEDS: HYDROcodone 7.5MG/APAP 325MG 1 EA TAB PO ONE ×2 (18:50→18:53)
[2017-06-15] MEDS ORDERED: ORPHENADRINE CITRATE 30 MG/ML AMP IV ONE (19:43)
[2017-06-15] MEDS ORDERED: ORPHENADRINE CITRATE 30 MG/ML AMP IM ONE (19:53)
[2017-06-15 20:18] VITALS: BP 120/76
== END 2017-06-15 20:22 | disposition home or self-care (01) ==
LOC: ER 11:36
DX: R10.9 Unspecified abdominal pain (principal); D50.0 Iron deficiency anemia secondary to blood loss (chronic); Z98.84 Bariatric surgery status; Z88.6 Allergy status to analgesic agent; Z88.8 Allergy status to other drugs, medicaments and biological substances
CPT/HCPCS: 36415; 71010; 74010; 76700; 80053; 81001; 83735; 85025; J2550; J3010; J7030